=== PATIENT | male | born 1970 | race African-American/Black ===

== ENCOUNTER 2018-11-03 10:45 | Emergency (ER) | payer OTHER ==
[~2018-11-03] VITALS: Ht 170.2 cm; Wt 60.9 kg
[2018-11-03] MEDS ORDERED: HTN MED PO (10:53)
[2018-11-03 13:39] VITALS: BP 155/95
[2018-11-03] MEDS ORDERED: LIDOCAINE 5% TRANSDERMAL PATCH TD ONE (14:00)
== END 2018-11-03 15:19 | disposition home or self-care (01) ==
LOC: EMS 10:46
DX: S83.91XA Sprain of unspecified site of right knee, initial encounter (principal); S09.90XA Unspecified injury of head, initial encounter; I10 Essential (primary) hypertension; W18.09XA Striking against other object with subsequent fall, initial encounter; Y93.72 Activity, wrestling; Y92.89 Other specified places as the place of occurrence of the external cause; Y99.8 Other external cause status

== ENCOUNTER 2019-03-28 11:39 | Emergency (ER) | payer OTHER ==
[~2019-03-28] VITALS: Ht 172.7 cm; Wt 100.0 kg
[~2019-03-28 11:39] MED LIST: HTN MED PO
[2019-03-28] MEDS ORDERED: IBUPROFEN 600 MG TABLET PO ONE (13:15)
[2019-03-28 14:49] VITALS: BP 138/80
== END 2019-03-28 14:50 | disposition home or self-care (01) ==
LOC: EMS 11:40
DX: M25.531 Pain in right wrist (principal); I10 Essential (primary) hypertension